=== PATIENT | female | born 1955 | race Caucasian/White ===

== ENCOUNTER → 2017-01-10 | Outpatient (CLI) | payer BC ==
--- NOTE | 2017-01-10 16:43 | DX ---
Shoulder Minimum 2 Views Left History: Shoulder pain Comparison exam: None available. Findings: Moderate acromioclavicular degenerative changes are present. No fracture or dislocation. Impression: Acromioclavicular degenerative arthropathy.
== END ==
LOC: CIMAGING 11:45
PROVIDERS: ATTEND Family Medicine
DX: M12.812 Other specific arthropathies, not elsewhere classified, left shoulder (principal)
CPT/HCPCS: 73030-PO

== ENCOUNTER → 2017-02-14 | Outpatient (CLI) | payer BC | LOC: CIMAGING 10:19 | DX: Z12.31 Encounter for screening mammogram for malignant neoplasm of breast (principal) | CPT/HCPCS: G0202 ==

== ENCOUNTER → 2018-04-19 | Outpatient (CLI) | payer OTHER | LOC: CIMAGING 09:50 | PROVIDERS: ATTEND Family Medicine | DX: Z12.31 Encounter for screening mammogram for malignant neoplasm of breast (principal) ==

== ENCOUNTER → 2019-04-20 | Outpatient (CLI) | payer OTHER | LOC: EMCIMAGING 14:50 | PROVIDERS: ATTEND Family Medicine | DX: Z12.31 Encounter for screening mammogram for malignant neoplasm of breast (principal) | CPT/HCPCS: 77067-PN ==